=== PATIENT | female | born 1950 | race Caucasian/White ===

== ENCOUNTER 2017-02-21 11:11 | Inpatient (IN) ==
--- NOTE | 2017-02-21 13:56 | Cardiology History & Physical ---
Date of Encounter: 02/21/17 Time of Encounter: 13:55 Assessment and Plan (1) A-fib Current Visit: No Status: Acute Recurrent A-Fib on Rythmol 150mg [id number]. Admitted for Rythmol increase--increase to 225mg [id number]. Monitor daily EKGs to monitor QRS. Baseline QRS on EKG in office 11/30/16 was 96ms. Possible DCCV while inpt if pt does not convert on Rythmol. No GEORGE warranted. Pt is anticoagulated on Pradaxa with no missed doses in the past 30 days. Check labs, continuous tele monitoring. I will discuss all the above with Dr. Dhruv Rosenberg and make changes as necessary. Qualifiers: Atrial fibrillation type: paroxysmal Qualified Code(s): I48.0 - Paroxysmal atrial fibrillation (2) Encounter for monitoring anti-arrhythmic therapy Current Visit: No Status: Acute As above. History of Present Illness Chief complaint: A-Fib, palpitations HPI: Ms. Del Cid is a 66 year old female with PMH of HTN, A-Fib, MILES. She has been on Rythmol for rhythm control and Pradaxa for anticoagulation. She was seen by Dr. Dhruv Rosenberg 11/30/16 for follow-up and noted to be back in A-Fib, noting palpitations. Options were discussed and she chose to come in for Rythmol dose increase and potential DCCV if warranted. Echo 06/2016 EF 60% with no significant valvular dysfunction. Stress test 03/2014 negative for ischemia or infarct. Pt denies chest pain or dyspnea. Last dose of 150mg Rythmol was at 9AM. She has not missed any Pradaxa doses in the past 30 days. Past Med Surg Social Fam HX - Past Medical History Medical history: arthritis, fibromyalgia, hypertension Psychiatric history: anxiety - Past Surgical History Surgical History: appendectomy, colectomy - Social History Smoking Status: Never smoker Smokeless Tobacco Status: No Alcohol use: none Drug use: none - Family History Father Family Member Ethnicity: Non- Living Status: Hx Family Cardiac Disorders: Yes Medications and Allergies Dabigatran [Pradaxa] 150 mg PO BID 07/09/15 [History] Triamterene/HCTZ 37.5/25mg [Dyazide] 1 tab PO DAILY 07/09/15 [History] OxyCODONE/APAP 5/325 [Percocet 5/325 MG] 1 tab PO Q6H PRN 06/15/16 [History] Diltiazem CD (24hr) [Cardizem CD] 120 mg PO DAILY #30 cap.er.24h 06/17/16 [Rx] Lisinopril [Zestril] 10 mg PO DAILY #30 tablet 06/17/16 [Rx] Propafenone [Rhythmol] 150 mg PO Q8H #90 tablet 06/17/16 [Rx] Simvastatin [Zocor] 20 mg PO DAILY 02/21/17 [History] Allergies Penicillins Adverse Reaction (Mild, Verified 07/09/15 08:07) Rash All Systems Review: A 10-system review of systems was performed and is negative for pertinent findings except as documented above in the HPI. - Cardiovascular Cardiovascular: as per HPI, palpitations Physical Examination General: Conversant, No Apparent Distress HEENT: Atraumatic, Normocephaly, Mucus Membranes Moist Neck: No JVD, Normal carotid pulses Cardiac: Other (irregularly irregular ) Lungs: Normal Breath Sounds, No Wheeze, Rales, Rhonchi Neuro: Alert and responsive, No focal deficits noted Abdomen: Soft, Non-Tender Skin: No rashes noted on visualized skin Musculoskeletal: No Chest Wall Tenderness Extremities: No Clubbing, No Cyanosis, No Edema, Normal Pulses Results - Imaging and Cardiology Stress Test: report reviewed Echo: report reviewed
[2017-02-21 15:22] LABS: BUN/Creatinine Ratio 23 (6-26); Basophils % 0.3 %; Blood Urea Nitrogen 15 mg/dL (7-20); Calcium 9.8 mg/dL (8.6-10.8); Carbon Dioxide 28 mEq/L (19-29); Chloride 101 mEq/L (98-109); Eosinophils # 0.1 K/mcL (0.0-0.6); Eosinophils % 0.8 %; Glucose 97 mg/dL (70-99); Hematocrit 46.7 % (35.3-44.9); Hemoglobin 15.1 g/dL (11.5-15.4); Immature Granulocytes % 0.4 % (0-4); Lymphocytes # 2.1 K/mcL (0.6-4.6); Lymphocytes % 21.4 %; Mean Corpuscular HGB Conc 32.3 g/dL (31.6-35.5); Mean Corpuscular Hemoglobin 27.8 pg (28.0-33.3); Mean Platelet Volume 10.1 fL (9.4-12.4); Monocytes # 0.7 K/mcL (0.0-1.3); Monocytes % 7.4 %; Neutrophils # 6.8 K/mcL (1.6-8.9); Osmolality,Calculated 287 (280-300); Platelet Count 345 K/mcL (140-400); Potassium 3.8 mEq/L (3.5-4.5); Red Blood Count 5.43 M/mcL (3.82-4.97); Red Cell Distribution Width 14.2 % (11.5-14.5); Segmented Neutrophils % 69.7 %; Sodium 138 mEq/L (136-145); eGFR For African Americans > 60 (> 60); eGFR For Non-African Americans > 60 (> 60)
[2017-02-21] MEDS: *HR* Dabigatran 150 MG CAPSULE PO SCH (22:06)
--- NOTE | 2017-02-22 08:27 | Electrocardiograph Report ---
[place] [address] Test Date: 2017-02-22 Pat Name: Jessie Del Cid Department: 111 Room: 2N0 Gender: Helper Coordinator: CHRISTAL : 1950 Requested By: Kayden Sage Order Number: [id number] Reading MD: Anhtony Fraga MD Measurements Intervals [place] Rate: 75 P: [place]: 0 QRS: -34 QRSD: 106 T: 21 QT: 376 QTc: 405 Interpretive Statements ATRIAL FIBRILLATION MARKED LEFT AXIS DEVIATION LOW QRS VOLTAGE IN PRECORDIAL LEADS Electronically Signed On 02-22-2017 8:26:07 EDT by Anthony Fraga MD
--- NOTE | 2017-02-22 08:39 | Cardiology Progress Note ---
Date of Encounter: 02/22/17 Time of Encounter: 08:37 Assessment and Plan (1) A-fib Current Visit: No Status: Acute Recurrent A-Fib on Rythmol 150mg [id number]. Admitted for Rythmol increase--increase to 225mg [id number]. Pt has received 3 doses, remains in A-Fib. Monitor daily EKGs to monitor QRS. Baseline QRS on EKG 02/21/17 88ms. EKG QRS 106ms. Plan for DCCV tomorrow AM if pt does not convert on Rythmol. No GEORGE warranted. Pt is anticoagulated on Pradaxa with no missed doses in the past 30 days. Qualifiers: Atrial fibrillation type: paroxysmal Qualified Code(s): I48.0 - Paroxysmal atrial fibrillation (2) Encounter for monitoring anti-arrhythmic therapy Current Visit: No Status: Acute As above. Discussion w patient/family: The assessment and plan as outlined above was discussed with the patient and/or family members who expressed understanding and agreement. All questions were answered. Thank you for involving us in the care of your patient. Please call with any questions. I will discuss all the above with Dr. Dhruv Rosenberg and make changes as necessary. Subjective Principal diagnosis: A-Fib Interval history: Pt has received 3 increased doses of Rythmol---225mg [id number]. She remains in A- Fib. 24 hour tele AVG HR 85, A-Fib. No acute complaints this AM. She is still able to feel palpitations. Objective Vital Signs, Last 4 Hours Temp Pulse Resp BP Pulse Ox 02/22/17 07:04 97.9 F 82 16 121/74 96 02/22/17 05:33 81 02/22/17 04:40 98.6 F 81 16 97/58 96 Vital Signs Temp Pulse Resp BP Pulse Ox 02/22/17 07:04 97.9 F 82 16 121/74 96 02/22/17 05:33 81 02/22/17 04:40 98.6 F 81 16 97/58 96 02/21/17 21:45 98.2 F 77 16 110/56 97 02/21/17 16:09 97.4 F L 89 16 114/80 96 02/21/17 14:31 97.6 F 84 16 128/70 98 02/21/17 14:16 89 96 Intake and Output 02/21/17 02/22/17 02/22/17 23:59 07:59 15:59 Intake Total 240 / 240 Output Total 300 / 300 Balance -60 / -60 Intake: Oral 240 / 240 Output: Urine 300 / 300 Other: Meal Lunch Percent of Meal Consumed 95% Weight 117.5 kg Patient Weight 02/22/17 23:59 Weight 117.5 kg General: Conversant, No Apparent Distress HEENT: Atraumatic, Normocephaly, Mucus Membranes Moist Neck: No JVD, Normal carotid pulses Cardiac: Other (irregularly irregular) Lungs: Normal Breath Sounds, No Wheeze, Rales, Rhonchi Neuro: Alert and responsive, No focal deficits noted Abdomen: Soft, Non-Tender Skin: No rashes noted on visualized skin Musculoskeletal: No Chest Wall Tenderness Extremities: No Clubbing, No Cyanosis, No Edema, Normal Pulses Results 02/21/17 14:49 02/21/17 14:49 Lab Results 02/21/17 02/21/17 14:49 14:49 WBC 9.7 Hgb 15.1 Hct 46.7 H Plt Count 345 Sodium 138 Potassium 3.8 Chloride 101 Carbon Dioxide 28 BUN 15 Creatinine 0.66 Glucose 97 Calcium 9.8 Short CBC 02/21/17 Range/Units 14:49 WBC 9.7 (4.3-11.1) K/mcL Hgb 15.1 (11.5-15.4) g/dL Hct 46.7 H (35.3-44.9) % Plt Count 345 (140-400) K/mcL Neutrophils # 6.8 (1.6-8.9) K/mcL BMP 02/21/17 Range/Units 14:49 Sodium 138 (136-145) mEq/L Potassium 3.8 (3.5-4.5) mEq/L Chloride 101 (98-109) mEq/L Carbon Dioxide 28 (19-29) mEq/L BUN 15 (7-20) mg/dL Creatinine 0.66 (0.57-1.11) mg/dL Glucose 97 (70-99) mg/dL Calcium 9.8 (8.6-10.8) mg/dL Active Medications Dabigatran (Pradaxa) 150 mg PO BID GREGORY Stop: 08/23/17 21:01 Last Admin: 02/21/17 22:06 Dose: 150 mg Diltiazem HCl (Cardizem Cd) 120 mg PO DAILY [facility] Stop: 08/24/17 09:01 Lisinopril (Zestril) 10 mg PO DAILY GREGORY PRN Reason: Protocol Stop: 08/24/17 09:01 Lisinopril (Zestril) 20 mg PO DAILY GREGORY PRN Reason: Protocol Stop: 08/24/17 09:01 Propafenone HCl (Rhythmol) 225 mg PO Q8H [facility] Stop: 08/23/17 16:01 Last Admin: 02/22/17 00:28 Dose: 225 mg Simvastatin (Zocor) 20 mg PO DAILY [facility] PRN Reason: Protocol Stop: 08/23/17 21:01 Last Admin: 02/21/17 22:06 Dose: 20 mg Triamterene/HCTZ (Dyazide) 1 each PO DAILY [facility] Stop: 08/24/17 09:01 - Imaging and Cardiology Stress Test: report reviewed Echo: report reviewed - EKG Interpretation EKG results cardiology: other (24 hour tele AVG HR 85, A-Fib.) - VTE Reasons for not Prescribing Prophylaxis: Not indicated-Anticoagulated or INR therapeutic Consult Discharge Plan - Plan Referrals: Juancarlos Peck DO [Primary Care Provider] -
[2017-02-22] MEDS: *HR* Dabigatran 150 MG CAPSULE PO SCH ×2 (09:04→20:35)
[2017-02-22] MEDS: Lisinopril 20 MG TABLET PO SCH (09:05)
[2017-02-22] MEDS: Diltiazem CD (24hr) 120 MG CAPSULE PO SCH (09:06)
--- NOTE | 2017-02-22 10:40 | Electrocardiograph Report ---
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
[2017-02-23] MEDS: Diltiazem CD (24hr) 120 MG CAPSULE PO SCH (09:00)
[2017-02-23] MEDS: *HR* Dabigatran 150 MG CAPSULE PO SCH (09:00)
[2017-02-23] MEDS: Lisinopril 20 MG TABLET PO SCH (09:05)
--- NOTE | 2017-02-23 12:55 | Pre-Sedation Evaluation ---
Pre-sedation evaluation - Pre-sedation checklist Procedure: cardioversion Recent Vitals: Last Vital Signs Temp 97.8 F 02/23/17 11:13 Pulse 90 02/23/17 11:13 Resp 16 02/23/17 11:13 BP 122/85 02/23/17 11:13 Pulse Ox 98 02/23/17 11:13 H&P (including ROS) documented in medical record: Yes Previous reaction to sedatives/anesthetics: No Dietary Status: NPO after Midnight Airway Assessment: Patient can open mouth completely, TMJ function normal, Micrognathia (under-bite, receding chin) absent Dentition: No loose teeth or bridges Possible difficult airway: No ASA Classification *see protocol: CLASS II-Mild systemic disease Plan of Care: Pt appropriate candidate for procedure/moderate/conscious sedation , Risks/benefits of procedure/sedation discussed w/ patient/family
[2017-02-23] MEDS ORDERED: *HR* FentaNYL (PF) 250 MCG/5 ML VIAL ONE (13:51)
[2017-02-23] MEDS ORDERED: Naloxone 0.4 MG/ML INJ ONE (13:51)
[2017-02-23] MEDS ORDERED: 0.9 % Sodium Chloride 1,000 ML ONE ×2 (13:51)
[2017-02-23] MEDS ORDERED: *HR* Midazolam HCl 5 MG/5 ML VIAL IVP ONE (13:51)
--- NOTE | 2017-02-23 14:37 | Invasive Diagnostic Lab ---
Cardioversion Name: Jessie Del Cid Date of Study: 02/23/2017 : 1950 Ht: 163.0 cm / 64.2 in Medical Record#: [id number] Age: 66 Wt: 116.0 kg / 255.7 lb Gender: Female BSA: 2.18 Location: Fluoro Dose: 0 mGy BMI: 43.66 Operating Physician: Dhruv Rosenberg MD, FACC Referring MD: Procedures Performed: Procedure CARDIOVERSION, EXTERNAL Indications: Description Atrial arrhythmia Impressions: Recommendations: Procedure Description: Following informed consent , the patient was sedated. After adequate sedation was achieved, cardioversion in the AP approach was successful using 300 Joules of biphasic energy. Normal sinus rhythm was restored after 1 attempt(s). The patient was monitored for the standard 30 minutes post procedure. Attempt # 1 300 joules Procedure Medications Time Medication Dose Unit Route Given By 02:02 PM Oxygen 8 L/min Oxymask Sonya Woods RN 02:06 PM Versed 4 Mg Intravenous Sonya Woods RN 02:06 PM Fentanyl 75 Mcg Intravenous Sonya Woods RN 02:10 PM Versed 3 Mg Intravenous Sonya Woods RN 02:10 PM Fentanyl 25 Mcg Intravenous Sonya Woods RN 02:15 PM Versed 2 Mg Intravenous Sonya Woosd RN 02:15 PM Fentanyl 50 Mcg Intravenous Sonya Woods RN Contrast: 0 ml. Complications: No complications occurred during the procedure. Complication None Updated by Dhruv Rosenberg MD, FACC on 02/23/2017 2:31:34 PM electronically signed on 02/23/2017 2:32:12 PM with status of Final
--- NOTE | 2017-02-23 15:08 | Electrocardiograph Report ---
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
--- NOTE | 2017-02-23 15:20 | Discharge Summary ---
Date of Encounter: 02/23/17 Time of Encounter: 15:15 - Discharge Diagnosis (1) Encounter for monitoring anti-arrhythmic therapy Priority: Primary Status: Acute (2) Paroxysmal atrial fibrillation Priority: Primary Status: Acute (3) Essential hypertension Priority: Secondary Status: Chronic - Discharge Medications Prescriptions: Propafenone [Rhythmol] 225 mg PO Q8H #90 tablet Home Medications: Dabigatran [Pradaxa] 150 mg PO BID 07/09/15 [History] Triamterene/HCTZ 37.5/25mg [Dyazide] 1 tab PO DAILY 07/09/15 [History] OxyCODONE/APAP 5/325 [Percocet 5/325 MG] 1 tab PO Q6H PRN 06/15/16 [History] Diltiazem CD (24hr) [Cardizem CD] 120 mg PO DAILY #30 cap.er.24h 06/17/16 [Rx] Lisinopril [Zestril] 10 mg PO DAILY #30 tablet 06/17/16 [Rx] Simvastatin [Zocor] 20 mg PO DAILY 02/21/17 [History] Propafenone [Rhythmol] 225 mg PO Q8H #90 tablet 02/23/17 [Rx] Allergies/Adverse Reactions: Allergies Penicillins Adverse Reaction (Mild, Verified 07/09/15 08:07) Rash Procedures/tests Complete & Pending: Procedures Performed prior 72 hours Category Date Time Status CL Cardioversion [CL] Routine Solids Control Technician 02/23/17 08:01 Completed ECG 12 lead ECG [ECG] Routine Y 02/21/17 14:29 Completed EKG [ECG 12 lead ECG] [ECG] AM 0600 Y 02/22/17 06:00 Completed EKG [ECG 12 lead ECG] [ECG] AM 0600 Y 02/23/17 06:00 Completed Date of admission: 02/21/17 12:23 Primary care physician: Juancarlos Peck Consults: none Discharging clinician: Dagoberto Barrios Anticipated date of discharge: 02/23/17 - Patient Status Disposition: Home, Self-Care Condition: Fair Overall status at discharge: patient is progressing back to baseline - Discharge Instructions Follow Up With: Juancarlos Peck, [Primary Care Provider] - - Diet and Activity Activity: increase activity as tolerated - Hospital Course Hospital course: Ms. Del Cid is a 66 year old female who presented for increase in her anti- arrhythmic therapy d/t recurrent afib. She was previously on rythmol 180 mg every 8 hours. She was monitored for 5 doses of rythmol 225 mg every 8 hours. QTc remained normal. EKG this morning reviewed. HR 78 bpm, QRS 104, QT/QTc 372/ 405. She underwent successful DCCV today. She remains in NSR. She will remain on pradaxa for anticoagulation. There were no complications during her stay. 2-3 week F/u will be coordinated by [facility]. - Time Spent with Patient Total time spent providing and/or coordinating discharge services: Greater than 30 minutes (d/c summary, teacing and medication recocillation.) Physical Examination General: Conversant, No Apparent Distress HEENT: Atraumatic, Normocephaly, Mucus Membranes Moist Neck: No JVD, Normal carotid pulses Cardiac: Reg Rate and Rhythm, Normal S1 and S2, No Murmur Lungs: Normal Breath Sounds, No Wheeze, Rales, Rhonchi Neuro: Alert and responsive, No focal deficits noted Abdomen: Soft, Non-Tender Skin: No rashes noted on visualized skin Musculoskeletal: No Chest Wall Tenderness Extremities: No Clubbing, No Cyanosis, No Edema, Normal Pulses - VTE Reasons for not Prescribing Prophylaxis: Not indicated-Anticoagulated or INR therapeutic
[2017-02-23 15:21] VITALS: BP 95/76
--- NOTE | 2017-02-25 12:31 | Electrocardiograph Report ---
[place] [address] Test Date: 2017-02-23 Pat Name: Jessie Del Cid Department: 111 Room: 2NE30 Gender: F Supervisor Final: REJI : 1950 Requested By: Dhruv Rosenberg Order Number: [id number] Reading MD: Dhruv Rosenberg Measurements Intervals [place] Rate: 61 P: 35 PA: 175 QRS: -34 QRSD: 93 T: 25 QT: 396 QTc: 400 Interpretive Statements SINUS RHYTHM WITH SINUS ARRHYTHMIA MARKED LEFT AXIS DEVIATION Electronically Signed On 02-25-2017 12:29:39 EDT by Dhruv Rosenberg
== END 2017-02-23 18:19 | disposition home or self-care (01) | DRG 310 ==
LOC: 2NENU 12:23
PROVIDERS: ADMIT Nurse Practitioner Family; ATTEND Internal Medicine Clinical Cardiac Electrophysiology

== ENCOUNTER 2018-01-30 09:57 | Inpatient (IN) ==
[2018-01-30 12:39] LABS: Basophils % 0.2 %; Eosinophils # 0.1 K/mcL (0.0-0.6); Eosinophils % 0.8 %; Hematocrit 43.3 % (35.3-44.9); Hemoglobin 14.8 g/dL (11.5-15.4); Immature Granulocytes % 0.6 % (0-4); Lymphocytes # 3.3 K/mcL (0.6-4.6); Lymphocytes % 26.2 %; Mean Corpuscular HGB Conc 34.2 g/dL (31.6-35.5); Mean Corpuscular Volume 87.7 fL (83.0-100.0); Monocytes # 0.8 K/mcL (0.0-1.3); Monocytes % 6.6 %; Neutrophils # 8.3 K/mcL (1.6-8.9); Platelet Count 344 K/mcL (140-400); Red Blood Count 4.94 M/mcL (3.82-4.97); Red Cell Distribution Width 14.8 % (11.5-14.5); Segmented Neutrophils % 65.6 %
[2018-01-30 12:59] LABS: BUN/Creatinine Ratio 44 (6-26); Blood Urea Nitrogen 28 mg/dL (8-23); Calcium 9.2 mg/dL (8.6-10.3); Carbon Dioxide 27 mEq/L (23-29); Chloride 103 mEq/L (98-107); Glucose 131 mg/dL (70-105); Osmolality,Calculated 293 (280-300); Potassium 3.7 mEq/L (3.5-5.1); Sodium 138 mEq/L (136-145); eGFR For African Americans > 60 (> 60); eGFR For Non-African Americans > 60 (> 60)
--- NOTE | 2018-01-30 13:10 | Electrophysiology H & P ---
<Kayden Sage R - Last Filed: 01/30/18 13:06> Date of Encounter: 01/30/18 Time of Encounter: 13:06 Assessment and Plan (1) Paroxysmal atrial fibrillation Current Visit: Yes Status: Acute Recurrent A-Fib, previously failed Rythmol, stopped in October. Currently on Cardizem CD 120mg daily. Reports palpitations and being able to tell when in A- Fib. Echo 06/2016 EF 60% with no significant valvular dysfunction. Stress test 2013 negative for ischemia or infarct. Admitted for Tikosyn initiation in attempt to restore SR. Creatinine clearance is 168.76. Baseline EKG 01/30/18 1242 A-Fib rate 82, QRS 81ms, QT/QTc 323/361ms. Discussed and reviewed with Dr. Dhruv Rosenberg. Start Tikosyn 500mcg P54iaugm this evening. EKGs 2-3 hours after each dose to monitor that QTc does not increase >15% from baseline. 15% increase in QTc would be 415ms. Needs monitored for minimum of 5 doses. Continuous telemetry. Possible DCCV while inpt if pt does not convert on Tikosyn. No GEORGE warranted. Pt is anticoagulated on Pradaxa with no missed doses in the past 30 days. Labs reviewed. K 3.7, Mag 2.1. Will give supplemental K and Mag. (2) Encounter for monitoring anti-arrhythmic therapy Current Visit: Yes Status: Acute As above. (3) Morbid obesity with BMI of 45.0-49.9, adult Current Visit: Yes Status: Acute Lifestyle modification necessary. The assessment and plan as outlined above was discussed with the patient and/or family members who expressed understanding and agreement. All questions were answered. History of Present Illness Chief complaint: A-Fib, palpitations HPI: Ms. Del Cid is a 67 year old female with PMH of HTN, A-Fib, MILES. She previously failed Rythmol for rhythm control, has had multiple cardioversions with recurrence of A-Fib. She is on Pradaxa for anticoagulation. She was seen by Dr. Dhruv Rosenberg 12/06/17, noted to be in A-Fib, noting palpitations. Rythmol was stopped in October. Options were discussed at visit and she chose to come in for Tikosyn initiation in attempt to restore SR and possible DCCV if warranted. Echo 06/2016 EF 60% with no significant valvular dysfunction. Stress test 03/2014 negative for ischemia or infarct. She has not missed any Pradaxa doses in the past 30 days. Pt denies chest pain or dyspnea. Notes mild LE edema that she attributes to being on her feet yesterday. Past Med Surg Social Fam HX - Past Medical History Medical history: arthritis, fibromyalgia, hypertension Psychiatric history: anxiety - Past Surgical History Surgical History: appendectomy, knee replacement - Social History Smoking Status: Never smoker Smokeless Tobacco Status: No Alcohol use: none Drug use: none - Family History Father Family Member Ethnicity: Non- Living Status: Hx Family Cardiac Disorders: No Hx Family Cancer: Yes (abesto exposes in the lung) Medications and Allergies Diltiazem CD (24hr) [Cardizem CD] 120 mg PO DAILY #30 cap.er.24h 06/17/16 [Rx] Simvastatin [Zocor] 20 mg PO DAILY 02/21/17 [History] Calcium Carb, Citrate/Vit D3 [Calcium + D3 ER Tablet] 1 tab PO DAILY 01/30/18 [ History] Dabigatran [Pradaxa] 150 mg PO BID 01/30/18 [History] Lisinopril [Zestril] 10 mg PO DAILY 01/30/18 [History] Multivit-Min/FA/Lycopen/Lutein [A Thru Z Select Multivit Tab] 1 tab PO DAILY [History] Triamterene/HCTZ 37.5/25mg [Dyazide] 1 tab PO DAILY 01/30/18 [History] 3 Allergy/AdvReac Type Severity Reaction Status Date / Time Penicillins AdvReac Mild Rash Verified 07/09/15 08:07 All Systems Review: The remainder of the systems were reviewed and are negative - Cardiovascular Cardiovascular: irregular heart rhythm, palpitations Physical Examination Vital Signs, Last 4 Hours Temp Pulse Resp BP Pulse Ox 01/30/18 12:06 97.8 F 101 16 121/67 97 01/30/18 12:00 97.8 F 101 16 121/67 97 Vital Signs Temp Pulse Resp BP Pulse Ox 01/30/18 12:06 97.8 F 101 16 121/67 97 01/30/18 12:00 97.8 F 101 16 121/67 97 Intake and Output 01/29/18 01/30/18 01/30/18 23:59 07:59 15:59 Intake Total 0 / 0 Output Total 0 / 0 Balance 0 / 0 Intake: Oral 0 / 0 Output: Urine 0 / 0 Other: Weight 123.377 kg Patient Weight 01/30/18 23:59 Weight 123.377 kg General: Conversant, No Apparent Distress HEENT: Atraumatic, Normocephaly, Mucus Membranes Moist Neck: No JVD, Normal carotid pulses Cardiac: Other (irregularly irregular rhythm) Lungs: Normal Breath Sounds, No Wheeze, Rales, Rhonchi Neuro: Alert and responsive, No focal deficits noted Abdomen: Soft, Non-Tender Skin: No rashes noted on visualized skin Musculoskeletal: No Chest Wall Tenderness Extremities: No Clubbing, No Cyanosis, No Edema, Normal Pulses Results 01/30/18 12:16 01/30/18 12:16 Lab Results 01/30/18 01/30/18 01/30/18 12:16 12:16 12:16 WBC 12.7 H Hgb 14.8 Hct 43.3 Plt Count 344 Sodium 138 Potassium 3.7 Chloride 103 Carbon Dioxide 27 BUN 28 H Creatinine 0.63 Glucose 131 H Calcium 9.2 Magnesium 2.1 Short CBC 01/30/18 Range/Units 12:16 WBC 12.7 H (4.3-11.1) K/mcL Hgb 14.8 (11.5-15.4) g/dL Hct 43.3 (35.3-44.9) % Plt Count 344 (140-400) K/mcL Neutrophils # 8.3 (1.6-8.9) K/mcL BMP 01/30/18 Range/Units 12:16 Sodium 138 (136-145) mEq/L Potassium 3.7 (3.5-5.1) mEq/L Chloride 103 (98-107) mEq/L Carbon Dioxide 27 (23-29) mEq/L BUN 28 H (8-23) mg/dL Creatinine 0.63 (0.60-1.20) mg/dL Glucose 131 H (70-105) mg/dL Calcium 9.2 (8.6-10.3) mg/dL Active Medications Dofetilide (Tikosyn) 0.5 mg PO Q12H GREGORY Stop: 08/01/18 21:01 - Imaging and Cardiology Stress Test: report reviewed Echo: report reviewed - EKG Interpretation EKG results cardiology: personally reviewed (A-Fib HR 82 QRS 81ms, QT/QTc 323/ 361ms.) <RosenbergDhruv muñoz - Last Filed: 01/31/18 12:25> Date of Encounter: 01/31/18 - Attending Attestation I have personally performed a face to face evaluation on this patient. I have reviewed and agree with the care plan. History and Exam by me shows: History of Present Illness HPI: Ms. Del Cid is a 67 year old female All Systems Review: The remainder of the systems were reviewed and are negative Physical Examination Vital Signs, Last 4 Hours Temp Pulse Resp BP Pulse Ox 01/31/18 11:25 98.6 F 92 17 99/65 97 Results 01/30/18 12:16 01/31/18 04:38 Lab Results 01/30/18 01/30/18 01/30/18 12:16 12:16 12:16 WBC 12.7 H Hgb 14.8 Hct 43.3 Plt Count 344 Sodium 138 Potassium 3.7 Chloride 103 Carbon Dioxide 27 BUN 28 H Creatinine 0.63 Glucose 131 H Calcium 9.2 Magnesium 2.1 01/31/18 04:38 WBC Hgb Hct Plt Count Sodium 138 Potassium 3.8 Chloride 105 Carbon Dioxide 24 BUN 19 Creatinine 0.51 L Glucose 102 Calcium 8.6 Magnesium 2.4
--- NOTE | 2018-01-30 16:57 | Electrocardiograph Report ---
[address] [place], [place] [address] Test Date: 2018-01-30 Pat Name: Jessie Del Cid Department: 110 Room: 2N04 Gender: F Family Psychologist: : 1950 Requested By: Kayden Sage Order Number: [id number] Reading MD: Gaby Todd Measurements Intervals [place] Rate: 82 P: [place]: 0 QRS: 101 QRSD: 81 T: 38 QT: 323 QTc: 361 Interpretive Statements ATRIAL FIBRILLATION POSSIBLE ANTERIOR MYOCARDIAL INFARCTION, OF INDETERMINATE AGE Electronically Signed On 01-30-2018 16:55:25 EDT by Gaby Todd
[2018-01-30] MEDS: *HR* Dabigatran 150 MG CAPSULE PO SCH (20:50)
[2018-01-30] MEDS: Diltiazem CD (24hr) 120 MG CAPSULE PO SCH (20:50)
[2018-01-31 05:34] LABS: BUN/Creatinine Ratio 37 (6-26); Blood Urea Nitrogen 19 mg/dL (8-23); Calcium 8.6 mg/dL (8.6-10.3); Carbon Dioxide 24 mEq/L (23-29); Chloride 105 mEq/L (98-107); Glucose 102 mg/dL (70-105); Magnesium 2.4 mg/dL (1.6-2.6); Osmolality,Calculated 288 (280-300); Potassium 3.8 mEq/L (3.5-5.1); Sodium 138 mEq/L (136-145); eGFR For African Americans > 60 (> 60); eGFR For Non-African Americans > 60 (> 60)
[2018-01-31] MEDS: Cholecalciferol (D-3) 1,000 UNIT TABLET PO SCH (08:44)
[2018-01-31] MEDS: Diltiazem CD (24hr) 120 MG CAPSULE PO SCH ×2 (08:44→21:45)
[2018-01-31] MEDS: Multivit/Ca/Min/Fe/FA 1 TAB TABLET PO SCH (08:44)
[2018-01-31] MEDS: *HR* Dabigatran 150 MG CAPSULE PO SCH ×2 (08:44→21:45)
--- NOTE | 2018-01-31 09:23 | Electrophysiology ProgressNote ---
Date of Encounter: 01/31/18 Time of Encounter: 09:20 Assessment and Plan (1) Paroxysmal atrial fibrillation Current Visit: Yes Status: Acute Recurrent A-Fib, previously failed Rythmol, stopped in October. On Cardizem CD 120mg BID. Reports palpitations and being able to tell when in A-Fib. Echo 06/2016 EF 60% with no significant valvular dysfunction. Stress test 2013 negative for ischemia or infarct. Admitted for Tikosyn initiation in attempt to restore SR. Creatinine clearance on admission 168.76. Renal function remains stable. Baseline EKG 01/30/18 1242 A-Fib rate 82, QRS 81ms, QT/QTc 323/361ms. Started Tikosyn 500mcg [id number] evening of 01/30/18. 15% increase in QTc from baseline would be 415ms. EKG 2 hours after 1st Tikosyn dose 01/30 0005 showed QTc increased >15%. Went from 361ms to 420ms. EKG this AM 01/31 0849 QTc 406ms. Discussed with Dr. Dhruv Rosenberg. Will decrease Tikosyn dose this AM to 250mcg Q12 hours. EKGs 2-3 hours after each dose to monitor QTc. Needs monitored for minimum of 72 hours from first dose. Continuous telemetry. Possible DCCV while inpt if pt does not convert on Tikosyn. No GEORGE warranted. Pt is anticoagulated on Pradaxa with no missed doses in the past 30 days. If does not convert, plan for DCCV on Monday. 72 hours from first Tikosyn dose will be Monday evening, so recommend pt stay until Monday AM. Labs reviewed. K 3.8, Mag 2.4. Will give supplemental K. Ideally would like K > 4.0 and Mag ~2.5. (2) Encounter for monitoring anti-arrhythmic therapy Current Visit: Yes Status: Acute As above. (3) Morbid obesity with BMI of 45.0-49.9, adult Current Visit: Yes Status: Acute Lifestyle modification necessary. The assessment and plan as outlined above was discussed with the patient and/or family members who expressed understanding and agreement. All questions were answered. Discussion w patient/family: The assessment and plan as outlined above was discussed with the patient and/or family members who expressed understanding and agreement. All questions were answered. Thank you for involving us in the care of your patient. Please call with any questions. I will discuss all the above with Dr. Dhruv Rosenberg and make changes as necessary. Subjective Principal diagnosis: PAF Interval history: Remains in A-Fib. Reports intermittent palpitations. Denies onset of any new symptoms. Denies chest pain or dyspnea. Objective Vital Signs, Last 4 Hours Temp Pulse Resp BP Pulse Ox 01/31/18 07:46 97.9 F 97 20 102/59 96 Vital Signs Temp Pulse Resp BP Pulse Ox 01/31/18 07:46 97.9 F 97 20 102/59 96 01/31/18 03:57 98.3 F 90 16 91/68 95 01/31/18 00:25 97.9 F 92 17 113/50 94 01/30/18 19:13 97.7 F 85 17 94/63 93 01/30/18 16:20 89 01/30/18 16:05 97.9 F 85 18 100/69 96 01/30/18 12:06 97.8 F 101 16 121/67 97 01/30/18 12:00 97.8 F 101 16 121/67 97 Intake and Output 01/30/18 01/31/18 01/31/18 23:59 07:59 15:59 Intake Total 240 / 240 120 / 120 Output Total 200 / 200 1100 / 1100 Balance 40 / 40 -1100 / -1100 120 / 120 Intake: Oral 240 / 240 120 / 120 Output: Urine 200 / 200 1100 / 1100 Other: Meal Dinner Breakfast Percent of Meal Consumed 100% 85% Weight 122.1 kg Patient Weight 01/31/18 23:59 Weight 122.1 kg General: Conversant, No Apparent Distress HEENT: Atraumatic, Normocephaly, Mucus Membranes Moist Neck: No JVD, Normal carotid pulses Cardiac: Other (irregularly irregular) Lungs: Normal Breath Sounds, No Wheeze, Rales, Rhonchi Neuro: Alert and responsive, No focal deficits noted Abdomen: Soft, Non-Tender Skin: No rashes noted on visualized skin Musculoskeletal: No Chest Wall Tenderness Extremities: No Clubbing, No Cyanosis, No Edema, Normal Pulses Results 01/30/18 12:16 01/31/18 04:38 Lab Results 01/30/18 01/30/18 01/30/18 12:16 12:16 12:16 WBC 12.7 H Hgb 14.8 Hct 43.3 Plt Count 344 Sodium 138 Potassium 3.7 Chloride 103 Carbon Dioxide 27 BUN 28 H Creatinine 0.63 Glucose 131 H Calcium 9.2 Magnesium 2.1 01/31/18 04:38 WBC Hgb Hct Plt Count Sodium 138 Potassium 3.8 Chloride 105 Carbon Dioxide 24 BUN 19 Creatinine 0.51 L Glucose 102 Calcium 8.6 Magnesium 2.4 Short CBC 01/30/18 Range/Units 12:16 WBC 12.7 H (4.3-11.1) K/mcL Hgb 14.8 (11.5-15.4) g/dL Hct 43.3 (35.3-44.9) % Plt Count 344 (140-400) K/mcL Neutrophils # 8.3 (1.6-8.9) K/mcL BMP 01/31/18 01/30/18 Range/Units 04:38 12:16 Sodium 138 138 (136-145) mEq/L Potassium 3.8 3.7 (3.5-5.1) mEq/L Chloride 105 103 (98-107) mEq/L Carbon Dioxide 24 27 (23-29) mEq/L BUN 19 28 H (8-23) mg/dL Creatinine 0.51 L 0.63 (0.60-1.20) mg/dL Glucose 102 131 H (70-105) mg/dL Calcium 8.6 9.2 (8.6-10.3) mg/dL Active Medications Calcium Carbonate (Tums) 500 mg PO DAILY [facility] Stop: 08/02/18 09:01 Last Admin: 01/31/18 08:44 Dose: 500 mg Dabigatran (Pradaxa) 150 mg PO BID [facility] Stop: 08/01/18 21:01 Last Admin: 01/31/18 08:44 Dose: 150 mg Diltiazem HCl (Cardizem Cd) 120 mg PO BID [facility] Stop: 08/01/18 21:01 Last Admin: 01/31/18 08:44 Dose: 120 mg Dofetilide (Tikosyn) 0.25 mg PO BID [facility] Stop: 08/02/18 09:31 Lisinopril (Zestril) 10 mg PO DAILY [facility] PRN Reason: Protocol Stop: 08/02/18 09:01 Last Admin: 01/31/18 08:44 Dose: 10 mg Multivitamins/Calcium (Thera M Plus) 1 tab PO DAILY [facility] Stop: 08/02/18 09:01 Last Admin: 01/31/18 08:44 Dose: 1 tab Simvastatin (Zocor) 20 mg PO HS [facility] PRN Reason: Protocol Stop: 08/02/18 21:01 Vitamin D (Vitamin D) 1,000 unit PO DAILY [facility] Stop: 08/02/18 09:01 Last Admin: 01/31/18 08:44 Dose: 1,000 unit - Imaging and Cardiology Stress Test: report reviewed Echo: report reviewed - EKG Interpretation EKG results cardiology: other (12 hr tele AVG HR 88, A-Fib, no ventricular arrhythmias noted.) - VTE Reasons for not Prescribing Prophylaxis: Not indicated-Anticoagulated or INR therapeutic Consult Discharge Plan - Plan Referrals: Kayden Sage CNP [Advanced Practice Nurse] - (office will call patient at home with follow up appointment) Dorota Burgos CNP [Advanced Practice Nurse] - 02/07/18 1:00 pm
--- NOTE | 2018-01-31 20:21 | Electrocardiograph Report ---
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
--- NOTE | 2018-01-31 20:34 | Electrocardiograph Report ---
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
--- NOTE | 2018-01-31 20:40 | Electrocardiograph Report ---
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
--- NOTE | 2018-01-31 20:41 | Electrocardiograph Report ---
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
--- NOTE | 2018-02-01 09:45 | Electrophysiology ProgressNote ---
Date of Encounter: 02/01/18 Time of Encounter: 09:37 Assessment and Plan (1) Paroxysmal atrial fibrillation Current Visit: Yes Status: Acute Recurrent A-Fib, previously failed Rythmol, stopped in October. On Cardizem CD 120mg BID. Reports palpitations and being able to tell when in A-Fib. Echo 06/2016 EF 60% with no significant valvular dysfunction. Stress test 2013 negative for ischemia or infarct. Admitted for Tikosyn initiation. Creatinine clearance on admission 168.76. Renal function remains stable. Baseline EKG 01/30/18 1242 QT/QTc 323/361ms. Started Tikosyn 500mcg [id number] evening of 01/30/18. EKG 2 hours after 1st Tikosyn dose showed QTc increased >15% , 361ms to 420ms. Decreased Tikosyn dose yesterday AM to 250mcg Q12 hours. QTc now stable. QTc was 392ms after 2nd dose, 413ms after 3rd dose yesterday evening. Per Dr. Dhruv Rosenberg, now monitor that QTc stays <500ms. EKGs 2-3 hours after each Tikosyn dose to monitor QTc. Plan for DCCV tomorrow if pt does not convert on Tikosyn. No GEORGE warranted. Pt is anticoagulated on Pradaxa with no missed doses in the past 30 days. 72 hours from first Tikosyn dose will be Monday evening, so recommend pt stay until Monday AM. Labs reviewed. Ideally would like K >4.0 and Mag ~2.5. Recheck today. (2) Encounter for monitoring anti-arrhythmic therapy Current Visit: Yes Status: Acute As above. (3) Morbid obesity with BMI of 45.0-49.9, adult Current Visit: Yes Status: Acute Lifestyle modification necessary. The assessment and plan as outlined above was discussed with the patient and/or family members who expressed understanding and agreement. All questions were answered. Discussion w patient/family: The assessment and plan as outlined above was discussed with the patient and/or family members who expressed understanding and agreement. All questions were answered. Thank you for involving us in the care of your patient. Please call with any questions. I will discuss all the above with Dr. Dhruv Rosenberg and make changes as necessary. Subjective Principal diagnosis: PAF Interval history: Remains in A-Fib. Denies onset of any new symptoms. Denies chest pain or dyspnea. Objective Vital Signs, Last 4 Hours Temp Pulse Resp BP Pulse Ox 02/01/18 07:31 97.7 F 76 16 108/81 93 Vital Signs Temp Pulse Resp BP Pulse Ox 02/01/18 07:31 97.7 F 76 16 108/81 93 02/01/18 04:30 96/69 02/01/18 03:43 98.2 F 74 16 87/60 98 02/01/18 00:20 102/69 01/31/18 23:35 98.0 F 86 18 83/67 96 01/31/18 19:12 97.6 F 75 20 90/55 94 01/31/18 16:22 98.2 F 62 20 97/72 97 01/31/18 11:25 98.6 F 92 17 99/65 97 Intake and Output 01/31/18 02/01/18 02/01/18 23:59 07:59 15:59 Intake Total 760 / 760 600 / 600 Output Total 1150 / 1150 450 / 450 Balance -390 / -390 150 / 150 Intake: Oral 760 / 760 600 / 600 Output: Urine 1150 / 1150 450 / 450 Other: Meal Dinner Breakfast Percent of Meal Consumed 100% Weight 122.3 kg Patient Weight 02/01/18 23:59 Weight 122.3 kg General: Conversant, No Apparent Distress HEENT: Atraumatic Neck: No JVD, Normal carotid pulses Cardiac: Other (irregularly irregular) Lungs: Normal Breath Sounds, No Wheeze, Rales, Rhonchi Neuro: Alert and responsive, No focal deficits noted Abdomen: Soft, Non-Tender Skin: No rashes noted on visualized skin Musculoskeletal: No Chest Wall Tenderness Extremities: No Clubbing, No Cyanosis, No Edema, Normal Pulses Results 01/30/18 12:16 01/31/18 04:38 Active Medications Calcium Carbonate (Tums) 500 mg PO DAILY [facility] Stop: 08/02/18 09:01 Last Admin: 01/31/18 08:44 Dose: 500 mg Dabigatran (Pradaxa) 150 mg PO BID [facility] Stop: 08/01/18 21:01 Last Admin: 01/31/18 21:45 Dose: 150 mg Diltiazem HCl (Cardizem Cd) 120 mg PO BID [facility] Stop: 08/01/18 21:01 Last Admin: 01/31/18 21:45 Dose: 120 mg Dofetilide (Tikosyn) 0.25 mg PO BID [facility] Stop: 08/02/18 09:31 Last Admin: 01/31/18 21:45 Dose: 0.25 mg Lisinopril (Zestril) 10 mg PO DAILY [facility] PRN Reason: Protocol Stop: 08/02/18 09:01 Last Admin: 01/31/18 08:44 Dose: 10 mg Multivitamins/Calcium (Thera M Plus) 1 tab PO DAILY [facility] Stop: 08/02/18 09:01 Last Admin: 01/31/18 08:44 Dose: 1 tab Simvastatin (Zocor) 20 mg PO HS [facility] PRN Reason: Protocol Stop: 08/02/18 21: Last Admin: 01/31/18 21:45 Dose: 20 mg Vitamin D (Vitamin D) 1,000 unit PO DAILY [facility] Stop: 08/02/18 09:01 Last Admin: 01/31/18 08:44 Dose: 1,000 unit - Imaging and Cardiology Stress Test: report reviewed Echo: report reviewed - EKG Interpretation EKG results cardiology: personally reviewed, other (12 hr tele AVG HR 83, A-Fib) - VTE Reasons for not Prescribing Prophylaxis: Not indicated-Anticoagulated or INR therapeutic Consult Discharge Plan - Plan Referrals: Kayden Sage CNP [Advanced Practice Nurse] - (office will call patient at home with follow up appointment) Dorota Burgos CNP [Advanced Practice Nurse] - 02/07/18 1:00 pm
[2018-02-01] MEDS: *HR* Dabigatran 150 MG CAPSULE PO SCH ×2 (09:56→21:36)
[2018-02-01] MEDS: Multivit/Ca/Min/Fe/FA 1 TAB TABLET PO SCH (09:56)
[2018-02-01] MEDS: Diltiazem CD (24hr) 120 MG CAPSULE PO SCH ×2 (09:56→21:36)
[2018-02-01] MEDS: Cholecalciferol (D-3) 1,000 UNIT TABLET PO SCH (09:56)
[2018-02-01 11:15] LABS: BUN/Creatinine Ratio 24 (6-26); Blood Urea Nitrogen 16 mg/dL (8-23); Calcium 8.9 mg/dL (8.6-10.3); Carbon Dioxide 26 mEq/L (23-29); Chloride 105 mEq/L (98-107); Glucose 127 mg/dL (70-105); Magnesium 2.2 mg/dL (1.6-2.6); Osmolality,Calculated 285 (280-300); Potassium 4.1 mEq/L (3.5-5.1); Sodium 136 mEq/L (136-145); eGFR For African Americans > 60 (> 60); eGFR For Non-African Americans > 60 (> 60)
--- NOTE | 2018-02-01 15:50 | Electrocardiograph Report ---
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
--- NOTE | 2018-02-01 15:50 | Electrocardiograph Report ---
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
[2018-02-02 05:46] LABS: BUN/Creatinine Ratio 31 (6-26); Blood Urea Nitrogen 15 mg/dL (8-23); Calcium 8.6 mg/dL (8.6-10.3); Carbon Dioxide 23 mEq/L (23-29); Chloride 106 mEq/L (98-107); Glucose 116 mg/dL (70-105); Magnesium 2.3 mg/dL (1.6-2.6); Osmolality,Calculated 282 (280-300); Potassium 4.4 mEq/L (3.5-5.1); Sodium 135 mEq/L (136-145); eGFR For African Americans > 60 (> 60); eGFR For Non-African Americans > 60 (> 60)
[2018-02-02] MEDS: Cholecalciferol (D-3) 1,000 UNIT TABLET PO SCH (07:57)
[2018-02-02] MEDS: *HR* Dabigatran 150 MG CAPSULE PO SCH ×2 (07:57→21:29)
[2018-02-02] MEDS: Diltiazem CD (24hr) 120 MG CAPSULE PO SCH ×2 (07:57→21:29)
[2018-02-02] MEDS: Multivit/Ca/Min/Fe/FA 1 TAB TABLET PO SCH (07:57)
--- NOTE | 2018-02-02 09:23 | Event Note ---
Date of Encounter: 02/02/18 Time of Encounter: 09:21 - Cardiology Event Note EKG shows atrial fibrillation , HR 76, QT/QTc 390/420, QRS 85. DCCV scheduled for 1200 today. Patient denies questions.
[2018-02-02] MEDS ORDERED: 0.9 % Sodium Chloride 500 ML ONE (12:15)
--- NOTE | 2018-02-02 12:36 | Pre-Sedation Evaluation ---
Pre-sedation evaluation - Pre-sedation checklist Date of procedure: 02/02/18 Procedure: CARDIOVERSION Recent Vitals: Last Vital Signs Temp 97.8 F 02/02/18 11:15 Pulse 75 02/02/18 11:15 Resp 18 02/02/18 11:15 BP 103/67 02/02/18 11:15 Pulse Ox 97 02/02/18 11:15 H&P (including ROS) documented in medical record: Yes Previous reaction to sedatives/anesthetics: No Dietary Status: NPO after Midnight Airway Assessment: Patient can open mouth completely, TMJ function normal, Micrognathia (under-bite, receding chin) absent Dentition: No loose teeth or bridges Possible difficult airway: No ASA Classification *see protocol: CLASS II-Mild systemic disease Plan of Care: Pt appropriate candidate for procedure/moderate/conscious sedation , Risks/benefits of procedure/sedation discussed w/ patient/family
[2018-02-02] MEDS ORDERED: *HR* Midazolam HCl 5 MG/5 ML VIAL IVP ONE (12:43)
[2018-02-02] MEDS ORDERED: *HR* FentaNYL (PF) 250 MCG/5 ML VIAL ONE (12:43)
--- NOTE | 2018-02-03 08:27 | Electrocardiograph Report ---
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
[2018-02-03] MEDS: Multivit/Ca/Min/Fe/FA 1 TAB TABLET PO SCH (08:48)
[2018-02-03] MEDS: Diltiazem CD (24hr) 120 MG CAPSULE PO SCH (08:49)
[2018-02-03] MEDS: Cholecalciferol (D-3) 1,000 UNIT TABLET PO SCH (08:49)
[2018-02-03] MEDS: *HR* Dabigatran 150 MG CAPSULE PO SCH (08:49)
[2018-02-03 08:54] VITALS: BP 118/69
--- NOTE | 2018-02-03 10:14 | Discharge Summary ---
Orders not resulted at time of discharge: Pending orders 02/02/18 12:00 CL Cardioversion [CL] Routine Date of Encounter: 02/03/18 Time of Encounter: 08:00 - Discharge Diagnosis (1) A-fib Priority: Primary Status: Acute Qualifiers: Atrial fibrillation type: paroxysmal Qualified Code(s): I48.0 - Paroxysmal atrial fibrillation (2) Encounter for monitoring anti-arrhythmic therapy Priority: Primary Status: Acute - Hospital Course Hospital course: Ms. Del Cid is a 67 year old female who presents for elective tikosyn therapy initiation with Dr. Dhruv Rosenberg for recurrent symptomatic A-Fib. She previously failed Rythmol, stopped in October. Creatinine clearance on admission 168.76. Renal function remained stable. Baseline EKG 01/30/18 1242 QT/QTc 323/361ms. Tikosyn 500mcg [id number] started 01/30. EKG 2 hours after 1st Tikosyn dose showed QTc increased >15%, 361ms to 420ms. Tikosyn was decreased to 250 mcg Q 12 hours. After her fifth dose she remained in atrial fibrillation and underwent successful cardioversion with 300 joules. QTC remained less than 500 ms. EKG last night showed NSR, HR 68 bpm. QT/ QTc 374/390 ms, QRS 84 ms. Diazide was discontinued due to medication interaction. She remains in NSR. Out-pt f/u will be scheduled with [facility]. - Time Spent with Patient Total time spent providing and/or coordinating discharge services: Greater than 30 minutes (1 hour, medication reconciliation. Dc summary, teaching ) - Discharge Medications Home Medications: Diltiazem CD (24hr) [Cardizem CD] 120 mg PO DAILY #30 cap.er.24h 06/17/16 [Rx] Simvastatin [Zocor] 20 mg PO DAILY 02/21/17 [History] Calcium Carb, Citrate/Vit D3 [Calcium + D3 ER Tablet] 1 tab PO DAILY 01/30/18 [ History] Dabigatran [Pradaxa] 150 mg PO BID 01/30/18 [History] Lisinopril [Zestril] 10 mg PO DAILY 01/30/18 [History] Multivit-Min/FA/Lycopen/Lutein [A Thru [employer] Multivit Tab] 1 tab PO DAILY [History] Dofetilide [Tikosyn] 0.25 mg PO BID #0 capsule 02/03/18 [Rx] Allergies/Adverse Reactions: 3 Allergy/AdvReac Type Severity Reaction Status Date / Time Penicillins AdvReac Mild Rash Verified 07/09/15 08:07 Date of admission: 01/30/18 11:20 Primary care physician: Juancarlos Peck Discharging clinician: Dagoberto Barrios Anticipated date of discharge: 02/03/18 Physical Examination Vital Signs, Last 4 Hours Temp Pulse Resp BP Pulse Ox 02/03/18 08:53 67 118/69 02/03/18 07:19 98.2 F 61 18 83/57 96 - Patient Status Disposition: Home, Self-Care Condition: Good Overall status at discharge: patient is progressing back to baseline - Discharge Instructions Follow Up With: Kayden Sage [facility]ER [Advanced Practice Nurse] - (office will call patient at home with follow up appointment) Dorota Burgos CNP [Advanced Practice Nurse] - 02/07/18 1:00 pm - Diet and Activity Activity: increase activity as tolerated - VTE Reasons for not Prescribing Prophylaxis: Not indicated-Anticoagulated or INR therapeutic
--- NOTE | 2018-02-06 11:46 | Electrocardiograph Report ---
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
--- NOTE | 2018-02-07 06:34 | Electrocardiograph Report ---
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
--- NOTE | 2018-02-07 06:38 | Electrocardiograph Report ---
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
== END 2018-02-03 13:40 | disposition home or self-care (01) | DRG 309 ==
LOC: 2NNU 11:20
PROVIDERS: ADMIT Nurse Practitioner Family; ATTEND Internal Medicine Clinical Cardiac Electrophysiology